=== PATIENT | male | born 1970 | race Caucasian/White ===

== ENCOUNTER 2017-06-16 17:23 | Emergency (ER) | payer SELFPAY ==
--- NOTE | ~2017-06-16 | ER ---
PATIENT'S NAME: JORGE SHOEMAKER [facility] AGE: 46 Y [address] ROOM: [place], [place] [address] LOCATION: ED ADMIT DATE: 06/16/2017 ER/Outpatient Report DISCHARGE DATE: 06/16/2017 FAMILY PHYSICIAN: Physician, Unknown ATTENDING PHYSICIAN: Zhang Leon CHIEF COMPLAINT: Chest pain. HISTORY OF PRESENT ILLNESS: About 20 to 30 minutes prior to arrival, the patient developed a sharp tearing sensation in his chest that he describes as though someone was tearing his heart out of his chest. It radiates to left. It does not go to his back, it does not go to his neck. He has never had anything like this before. He smokes a pack and half a day. He has a known adrenal mass that he did not tell us about in the past. He takes medical marijuana for PTSD and has a history of headaches, and he has a strong family historyof heart disease. PAST MEDICAL HISTORY: Documented on the record and reviewed by me. SOCIAL HISTORY: Documented on the record and reviewed by me. MEDICATIONS: Documented on the record and reviewed by me. ALLERGIES: DOCUMENTED ON THE RECORD AND REVIEWED BY ME. REVIEW OF SYSTEMS: All systems reviewed and negative except as noted in the HPI. PHYSICAL EXAMINATION: VITAL SIGNS: Blood pressure 133/86, pulse 110, respiratory rate 24, temperature 97.4, and SpO2 is 99% on room air. Pain is rated at 7/10. GENERAL: Age-appropriate male, sitting upright on the exam table, in mild distress and definite pain. NEUROLOGIC: Awake and alert. GCS is 15. No obvious abnormalities. No asymmetry on exam. HEENT: Normocephalic, atraumatic. Eyes are PERRL. Oropharynx is clear. NECK: Supple. Trachea is midline. CHEST/HEART: Tachycardic. No murmur. LUNGS: Clear to auscultation bilateral. No rhonchi, wheezes, or rales. ABDOMEN: Soft, nontender, nondistended. No rebound, guarding, or masses. PATIENT'S NAME: JORGE SHOEMAKER [facility] AGE: 46 Y [address] ROOM: [place], [place] [address] LOCATION: ED ADMIT DATE: 06/16/2017 ER/Outpatient Report DISCHARGE DATE: 06/16/2017 FAMILY PHYSICIAN: Physician, Unknown ATTENDING PHYSICIAN: Zhang Leon BACK: Normal to inspection and palpation. No CVA or paraspinal tenderness. EXTREMITIES: Warm and well perfused. Left calf is slightly larger than the right, but no findings consistent with DVT. SKIN: Clean, dry, and intact with no rashes. Not diaphoretic. LABORATORY DATA AND X-RAYS: Chest x-ray was obtained and unremarkable per my review. EKG is notable for sinus tachycardia with no comparison available. Initial blood labs are pending. D-dimer is available at 0.24. IMPRESSION: Chest pain. EMERGENCY DEPARTMENT COURSE: The patient was seen and evaluated as above. Acute coronary syndrome and PE as well as dissection are on the differential. He is not with asymmetric blood pressures as they were taken in both arms and within 20 points of each other and in fact left arm was actually higher upon arrival. With his travel, PE would be likely. D-dimer is below threshold and thus excluding DVT and PE. Care was transitioned to Dr. Dennis at 1800 hours after the patient had received some fentanyl and some nitroglycerin as well as aspirin. Please see Dr. Dennis's note for completion of encounter. ZHANG LEON MD JH/modl /[id number] P d: 06/17/17819 t: 07/01/17 0950, OUTPATIENT REPORT
--- NOTE | ~2017-06-16 | ER ---
PATIENT'S NAME: JORGE SHOEMAKER [facility] AGE: 46 Y [address] ROOM: [place], [place] [address] LOCATION: ED ADMIT DATE: 06/16/2017 ER/Outpatient Report DISCHARGE DATE: 06/16/2017 FAMILY PHYSICIAN: Physician, Unknown ATTENDING PHYSICIAN: Zhang Hess The patient was initially seen by Dr. Hess, please see his note. HISTORY OF PRESENT ILLNESS: This is a 46-year-old male with a history of chest pain "like someone is ripping my heart out of my chest." Initial workup by Dr. Hess revealed negative cardiac enzymes. EKG was unremarkable. I assumed care at shift change, pending the results of the 2nd set of enzymes or waiting for the 2nd set of enzymes. I elected to go ahead and get a CT aortogram. The aorta was negative, it was notable for a 7-cm adrenal mass. I discussed this with the patient. He is aware that he had a mass, although, it has nearly doubled in size since his most recent scan. I had planned to admit him to the hospital to make arrangements for excisional biopsy, but the patient refused admission. ASSESSMENT: 1. Chest pain. 2. Adrenal mass. PLAN: The patient left AMA. KAREN JEFFRIES MD JDB/modl /[id number] d: 06/17/17 0136 t: 06/17/17 0543, OUTPATIENT REPORT
[2017-06-16 17:35] LABS: BASOPHIL # 0.1 K/uL (0.0-0.2); BASOPHIL % 1.1 %; EOSINOPHIL # 0.2 K/uL (0.0-0.5); HEMATOCRIT 44.5 % (37.0-53.0); HEMOGLOBIN 15.7 g/dL (12.0-17.0); IMMATURE GRANULOCYTE % 0.2 %; LYMPHOCYTE % 24.8 %; MCHC 35.3 gm/dL (32.0-36.5); MCV 85.1 fl (83.0-98.0); MONOCYTE # 0.7 K/uL (0.0-1.0); MONOCYTE % 8.7 %; MPV 9.5 fl (9.4-12.4); NEUTROPHIL # (ANC) 5.1 K/uL (1.4-9.0); NEUTROPHIL % 63.2 %; NRBC % 0 /100WBC (0-0.00); PLATELET COUNT 198 K/uL (150-450); RBC 5.23 M/uL (4.00-6.00); RDW-CV 13.3 % (11.9-14.6); WBC 8.1 K/uL (4.0-11.0)
[2017-06-16 17:43] LABS: INR - (THERAPEUTIC) 0.97 (0.92-1.07); PROTIME 10.2 SECONDS (9.8-11.4); PTT 27 SECONDS (25-32)
[2017-06-16 17:54] LABS: ALBUMIN 3.8 gm/dL (3.5-5.0); ALK PHOS 86 IU/L (33-138); ALT 27 IU/L (12-78); ANION GAP 11.7 (10.0-19.0); AST 17 IU/L (10-40); BLOOD UREA NITROGEN 12 mg/dL (6-24); CALCIUM 9.2 mg/dL (8.5-10.5); CHLORIDE 107 mMol/L (96-110); CO2 25 mMol/L (22-32); CPK 208 IU/L (35-332); CREATININE 0.9 mg/dL (0.6-1.3); MAGNESIUM 1.9 mg/dL (1.8-2.6); POTASSIUM 3.7 mMol/L (3.7-5.1); SODIUM 140 mMol/L (135-145); TOTAL BILIRUBIN 0.6 mg/dL (0.0-1.5); TOTAL PROTEIN 7.4 g/dL (6.0-8.4)
[2017-06-16 19:52] LABS: CPK 171 IU/L (35-332)
== END 2017-06-16 20:28 | disposition disaster alternative care site (69) ==
LOC: GMED 17:23
PROVIDERS: Emergency Medicine
DX: R07.9 Chest pain, unspecified (principal); E27.8 Other specified disorders of adrenal gland; F17.210 Nicotine dependence, cigarettes, uncomplicated; F43.10 Post-traumatic stress disorder, unspecified; Z88.1 Allergy status to other antibiotic agents
CPT/HCPCS: J2270; J3010; Q9967